=== PATIENT | male | born 1960 | race Caucasian/White ===

== ENCOUNTER 2018-01-29 10:00 | Day surgery (SDC) | payer OTHER ==
[2018-01-28 11:50] LABS: BASOPHILS 0.5 % (0-2); EOSINOPHILS 1.4 % (0-7); HEMATOCRIT 42.6 % (42.0-54.0); HEMOGLOBIN 14.7 g/dL (13.5-17.5); IMMATURE GRANULOCYTES 0.2 % (0-5); LYMPHOCYTES 31.6 % (15-50); MCH 29.3 pg (26.0-34.0); MCHC 34.5 g/dL (31.0-37.0); MEAN PLATELET VOLUME 9.9 fL (7.4-10.4); MONOCYTES 8.7 % (2-11); NEUTROPHILS 57.6 % (40-80); PLATELET COUNT 193 10x3/uL (130-400); RBC 5.01 10x6/uL (4.20-6.10); RDW 13.1 % (11.5-14.5); WBC 6.3 10x3/uL (4.8-10.8)
[2018-01-28 12:19] LABS: CALC OSMOLALITY 279 mosm/kg (275-300); CALCIUM 9.6 mg/dL (8.5-10.1); CARBON DIOXIDE 28.5 mmol/L (21.0-32.0); CHLORIDE - SERUM 105 mmol/L (98-107); CREATININE - SERUM 0.8 mg/dL (0.6-1.3); GLUCOSE 104 mg/dL (74-106); POTASSIUM - SERUM 4.2 mmol/L (3.5-5.1); SODIUM 140 mmol/L (136-145); UREA NITROGEN 14 mg/dL (7-18); eGFR NON AFRICAN AMERICAN > 90 mL/min (90-120)
[~2018-01-29] VITALS: Ht 175.3 cm; Wt 108.9 kg
--- NOTE | ~2018-01-29 | OP ---
PATIENT NAME: DWAYNE CROOK MEDICAL RECORD: [id number] :64 LOCATION:D.OPS ADMISSION DATE: SURGEON: PATRIZIA MCCLAIN MD DATE OF OPERATION: 01/29/2018 PREOPERATIVE DIAGNOSES: 1. External and internal hemorrhoids. 2. Coronary artery disease. 3. Diabetes mellitus. 4. Hypercholesterolemia. 5. Hypertension. POSTOPERATIVE DIAGNOSES: 1. External and internal hemorrhoids. 2. Coronary artery disease. 3. Diabetes mellitus. 4. Hypercholesterolemia. 5. Hypertension. PROCEDURE: PPH stapled hemorrhoidectomy. SURGEON: Patrizia Mcclain MD REPORT OF PROCEDURE: The patient was placed in the jackknife prone position and the perianal region was prepped and draped in sterile fashion. An inspection showed the patient had large mixed internal and external hemorrhoids in all 3 columns. A PPH anoscope was inserted and sutured down to the skin on all sides using interrupted 3-0 Vicryls. A 2-0 Prolene was used to make a pursestring just proximal to the dentate line. The PPH stapler was then inserted. We then pulled this pursestring tightly over this and the stapler was fired, removing a complete ring of tissue. We inspected the staple line and there was some bleeding anteriorly, which was oversewn with a 2-0 chromic. The bleeding stopped at that point. The PPH anoscope was then removed and it revealed that the external hemorrhoids were significantly decreased in size already. We inserted a piece of Gelfoam with Americaine into the anus. COMPLICATIONS: None. CONDITION: Stable. ANESTHESIA: General endotracheal. BLOOD LOSS: Minimal. TRANSINT:[id number] Voice Confirmation ID: [id number] DOCUMENT ID: [id number] PATRIZIA MCCLAIN MD at 1409 CC: MARAH LEAL MD [id number] DICTATION DATE: 01/29/18 1233 INFORMATION TECHNOLOGY ANALYST: 01/29/[address] [facility] 01/29/[address] [id number]
[~2018-01-29 10:00] MED LIST: ANUSOL-HC 2.5%30 GM RC; ASPIRIN EC81 M1 PO; BYDUREON P2 MG/0.65 SC; CYCLOBENZAPRINE10 MG PO; FARXIGA5 MG PO; LIPITOR80 MG PO; LISINOPRIL10 MG PO; PLAVIX75 MG PO; PROTONIX40 MG PO; TOPROL XL50 MG PO
[2018-01-29 11:17] VITALS: BP 146/85; Ht 175.3 cm; Wt 108.9 kg
[2018-01-29] MEDS ORDERED: HYDROCODONE-APA1 TAB PO (12:30)
== END 2018-01-29 16:00 | disposition home or self-care (01) ==
LOC: D.OPS 10:00 → D.PAN 13:15 → D.OPS 13:15
PROVIDERS: Surgery
DX: K64.4 Residual hemorrhoidal skin tags (principal); K64.8 Other hemorrhoids; I25.10 Atherosclerotic heart disease of native coronary artery without angina pectoris; I10 Essential (primary) hypertension; E11.9 Type 2 diabetes mellitus without complications; G47.30 Sleep apnea, unspecified; E66.01 Morbid (severe) obesity due to excess calories; Z01.812 Encounter for preprocedural laboratory examination